=== PATIENT | male | born 1995 ===

== ENCOUNTER 2021-05-29 20:11 | Emergency (ER) | payer SELFPAY ==
[~2021-05-29] VITALS: Ht 175 cm; Wt 81.3 kg
[2021-05-29 20:21] VITALS: BP 143/94
--- NOTE | 2021-05-29 20:33 | ED Upper Extremity ---
General Chief Complaint: Upper Extremity Stated Complaint: JAMMED FINGER R HAND Source: patient History of Present Illness Date Seen by Provider: May 29, 2021 Time Seen by Provider: 20:25 Initial Comments PT ARRIVES VIA POV STATES LESS THAN 30 MINUTES AGO, HE WAS PLAYING RUGBY, AND TRIED TO CATCH THE BALL WHICH HAD BEEN KICKED AND HE "JAMMED" HIS RIGHT 4TH FINGER. PAIN IS AROUND PIP JOINT NO OTHER INJURIES FROM THE INCIDENT NO PRIOR INJURY TO THIS FINGER, BUT HAS HAD OTHER JAMMED FINGERS PCP: ROSSY-JOSH Allergies and Home Medications Allergies Coded Allergies: No Known Drug Allergies (Unverified , 02/26/13) Patient Home Medication List Home Medication List Reviewed: Yes No Active Prescriptions or Reported Meds Review of Systems Constitutional: no symptoms reported Musculoskeletal: see HPI Psychiatric/Neurological: No Symptoms Reported Past Avgmhpe-Rsoicl-Suetkv Hx Patient Social History Tobacco Use?: Yes Tobacco type used: Cigarettes Smoking Status: Current Everyday Smoker Substance use?: No Alcohol Use?: Yes Alcohol Frequency: Once in a while Pt feels they are or have been: No Immunizations Up To Date First/Initial COVID19 Vaccinat: 02/20 Second COVID19 Vaccination Adi: 03/24 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 oz. 95.754596gb; BMI Method:Stated General Appearance: WD/WN, no apparent distress Hand: no evidence of injury, normal ROM, Right (RIGHT 4TH FINGER PIP JOINT, SLIGHTLY TENDER, NO SWELLING OR DEFORMITY OR BRUISING OR EXTERNAL EVIDENCE OF TRAUMA. FULL ROM. SENSORY/VASCULAR INTACT. ) Neurologic/Psychiatric: no motor/sensory deficits, alert, normal mood/affect Skin: normal color (PT IS ), warm/dry Progress/Results/Core Measures Results/Orders My Orders Orders - RODRIGUEZ,JEFF K DO Finger(S) (05/29/21 20:29) Vital Signs/I&O 05/29/21 20:21 Temp 36.2 Pulse 99 Resp 18 B/P (MAP) 143/94 (110) Pulse Ox 95 O2 Delivery Room Air Diagnostic Imaging Comments FINGER XRAYS--PER RADIOLOGIST REPORT AT 2100 FINDINGS: There is no acute fracture or dislocation of the right fingers. Alignment is anatomic. The imaged joint spaces are preserved. IMPRESSION: 1. No acute fracture or dislocation in the right hand. In particular, no fracture seen in the right 4th digit. Reviewed: Reviewed by Me Departure Impression Primary Impression: SPRAIN OF RIGHT 4TH FINGER Disposition: HOME, SELF-CARE Condition: Stable Departure-Patient Inst. Decision time for Depature: 21:00 Referrals: [facility] Patient Instructions: Humberto Tuttle (DC) Add. Discharge Instructions: ICE TO AREA AT 20 MINUTE INTERVALS TYLENOL AND MOTRIN NEEDED FOR PAIN FOLLOW UP WITH [facility] IN 1 WEEK IF NO BETTER All discharge instructions reviewed with patient and/or family. Voiced understanding. Scripts No Active Prescriptions or Reported Meds JEFF FRIAS DO May 29, 2021 20:33
--- NOTE | 2021-05-29 20:57 | Diagnostic Imaging Report ---
CLINICAL HISTORY: Right 4th finger pain. COMPARISON: None. TECHNIQUE: 3 views of the right fingers. FINDINGS: There is no acute fracture or dislocation of the right fingers. Alignment is anatomic. The imaged joint spaces are preserved. IMPRESSION: 1. No acute fracture or dislocation in the right hand. In particular, no fracture seen in the right 4th digit. Dictated by: Dictated on workstation # [id number]
== END 2021-05-29 21:06 | disposition home or self-care (01) ==
LOC: EDUNIT# 20:11 → ER 20:16
DX: S63.614A Unspecified sprain of right ring finger, initial encounter (principal); F17.210 Nicotine dependence, cigarettes, uncomplicated; W23.1XXA Caught, crushed, jammed, or pinched between stationary objects, initial encounter
CPT/HCPCS: 73140